=== PATIENT | female | born 1995 | race Asian ===

== ENCOUNTER 2023-12-19 00:32 | Emergency (ER) | payer BC, SELFPAY ==
[2023-12-19 00:35] VITALS: BP 156/99
[2023-12-19 00:48] VITALS: BP 148/96; BMI 43.0
--- NOTE | 2023-12-19 00:58 | ED.GENMED ---
History of Present Illness
General
Chief Complaint: Fever
Source: patient
Exam Limitations: none
Time Seen by Provider: 12/19/23 00:49
Travel History
Have you had any contact with someone who has COVID-19?: No
Do you have any symptoms of coronavirus? Fever > 100 degrees, chills, cough, shortness of breath, sore throat, loss of taste or smell, muscle aches, or headache?: Yes
Symptoms:: fever
History of Present Illness
History of Present Illness:
This is a 27 year old female that comes in with c/o chills. States that around 11:30pm she started with chills. state that she also had tingling in her pinky's and her feet were cold. States that she was hyperventilating and had diarrhea tonight but
felt it was from what she had eaten. Denies any chest pain, abd pain, nausea, vomiting, headache, dizziness, urinary burning.
Past History
Past History
ED Past Medical History: Other (migraine)
ED Past Surgical History: None
Social History
Tobacco: Non-smoker
Alcohol: Occasional
Drug: None
Personal:
Living: with family
Employment: Employed
Review of Systems
Review of Systems
All Other Systems: ROS reviewed and negative except as documented in HPI and ROS
Constitutional: Reports chills; Denies fever
EENT: Reports no symptoms
Respiratory: Denies cough or trouble breathing
Cardiac: Reports no symptoms; Denies chest pain
ABD/GI: Reports diarrhea; Denies abdominal pain, nausea or vomiting
: Reports no symptoms; Denies dysuria, frequency or urgency
Musculoskeletal: Reports no symptoms
Skin: Reports no symptoms
Neurological: Reports no symptoms; Denies dizzy or headache
Psychiatric: Reports no symptoms
Phy Exam
General Physical Exam
General Presentation: no apparent distress
General age: appears stated age
General Skin: warm and dry
General Habitus: normal
General Mental: alert
General Hydration: appears well hydrated
ENT Exam
ENT Exam: TM's normal, pharynx normal and neck supple
Eye Exam
Eye Exam: EOMI
Cardiovascular Exam
Cardiovascular Exam: regular rate/rhythm, no edema, no murmur and normal peripheral pulses
Pulmonary Exam
Pulmonary Exam: lungs clear, no respiratory distress, no rales, chest non tender, no crackles, no rhonchi, no wheezing and no cough
Gastrointestinal Exam
Gastrointestinal Exam: normal bowel sounds, non tender, soft, no organomegaly, no pulsatile mass and non distended
Musculoskeletal Exam
Musculoskeletal Exam: full ROM and no edema
Skin Exam
Skin Exam: normal color, warm/dry, no rash and no petechia
Course
Orders/Labs/Results
Orders:
Orders
12/19/23 00:56
0.9% Sodium Chloride 1000 ml [Nss] 1,000 ml IV BOLUS
Acetaminophen [Tylenol] 1,000 mg PO NOW STA
Test Result ONCE
12/19/23 01:02
COVID-19 Antigen Urgent
Source: Nasal Swab
Urinalysis Reflex To Culture Urgent
Date Specimen was Collected: 12/19/23
Time Specimen was Collected: 00:59
Urine Microscopic Reflex Cult Urgent
Influenza A+B Rapid Molecular Urgent
JANIYA Source: Nasal Swab
Specimen Description:
Urine Culture Urgent
JANIYA Source: U
Specimen Description:
Date Specimen was Collected: 12/19/23
Time Specimen was Collected: 00:59
12/19/23 01:08
Complete Blood Count/With Diff Urgent
Comprehensive Metabolic Panel Urgent
HCG, Serum Qualitative Screen Urgent
12/19/23 01:47
CR Chest - 2 Views Urgent
Comment:
Reason For Exam: Fever
Abnormal Lab Results
12/19/23 12/19/23
01:02 01:08
MCV 77.8 L fL
(81.0-99.0)
Abs Immat Gran (auto) 0.1 H 10^3/uL
(0-0.05)
Absolute Lymphs (auto) 0.8 L 10^3/uL
(1.2-3.4)
Immature Gran % 0.8 H %
(0-0.5)
Neutrophils % 78.6 H %
(42.2-75.2)
Lymphocytes % 11.6 L %
(20.5-51.1)
Sodium 133 L mmol/L
(135-145)
Carbon Dioxide 19 L mmol/L
(22-30)
Creatinine 0.5 L mg/dL
(0.6-1.0)
AST 67 H U/L
(14-36)
ALT 46 H U/L
(0-35)
Leukocyte Esterase Rfl Trace A
(Negative)
Urine Bacteria (Reflex) Many A
(Negative)
12/19/23 01:08
12/19/23 01:08
Sodium slightly low. Carbon dioxide slightly low. AST/ALT elevation but improved when compared to prior labs. Urine negative for infection. HCG negative, COVID and Influenza negative.
Vital Signs
Initial and Last Documented VS:
Initial Vital Signs
Temp Pulse Resp BP Pulse Ox
101.4 F H 130 20 156/99 98
12/19/23 00:35 12/19/23 00:35 12/19/23 00:35 12/19/23 00:35 12/19/23 00:35
Last Documented Vital Signs
Temp Pulse Resp BP Pulse Ox
101.4 F H 130 20 148/96 96
12/19/23 00:35 12/19/23 00:35 12/19/23 00:35 12/19/23 00:48 12/19/23 00:48
MDM/Problems Addressed
Differential Diagnosis Includes:
COVID, Influenza, UTI
MDM/Problems Addressed:
This is a 27 year old female that comes in with c/o chills. States that this started about 11:30pm tonight. States that she as hyperventilating and that her pinky's were tingling and her feet were cold.
Will get labs, COVID and Influenza.
Back into see patient. Explained that her blood work shows that her Liver enzymes are elevated. They have been elevated in the past but improved since that time. Explained that the liver enzymes can also go up with a viral illness. Patient is
negative for COVID, Influenza and her Urine is negative. Chest x-ray is normal. Explained that this is most likely a viral illness. Patient can alternate with Tylenol and Ibuprofen for fever. Increase her water intake to 8-8oz glasses daily. Follow
up with the family doctor. Return with any concerns.
Chronic conditions affecting care:
NA
Acute Exacerbation and/or Progression of Chronic Illness:
NA
*Radiology
Radiology exam reviewed: preliminary read by ED provider (Chest- Negative for active disease)
*Pulse Oximetry
Patient hypoxic: no
*EKG
Interpreted by ED Provider?: NA
Rate: EKG- N/A
*Folder Seamer Automatic Interpretation
Rate: Folder Seamer Automatic- N/A
*Critical Care Note
Total Time (30-74mins, 75-104mins- exclusive of procedures): Not Applicable
ED Attending Note
-
Portions of this chart may have been created with voice recognition software.� Occasional wrong word or��sound alike� substitutions may have occurred due to the inherent limitations of voice recognition software.
Discharge Plan
Departure
Patient Disposition: Home (Routine Discharge)
Date of Disposition: 12/19/23
Time of Disposition: 02:13
Patient with high blood pressure during this ER visit?: Yes
Condition: Good
Covid-19: Negative COVID-19
Discharge Problem:
Acute viral syndrome
Instructions: Fever, Adult (DC), Viral Syndrome (DC), BLOOD PRESSURE
Prescriptions:
No Action
multivitamin 1 EACH tablet
1 ea PO Daily
desog-e.estradiol/e.estradiol [Viorele (28)] 1 EACH tablet
1 ea PO Daily
ondansetron 4 MG tablet,disintegrating
4 mg PO TIDPRN PRN (Reason: nausea) Qty: 7 0RF
diclofenac sodium 75 MG tablet,delayed release (DR/EC)
75 mg PO BID Qty: 10 0RF
prochlorperazine maleate 10 MG tablet
10 mg PO Q8HPRN PRN (Reason: headaches and nausea) Qty: 12 0RF
Activity Restrictions/Additional Instructions:
As discussed, your blood work shows that your liver enzymes are elevated. However, they are improved from the prior blood work that was done. You are negative for COVID, Influenza, urine is negative and your chest x-ray is normal. This is most
likely a viral illness. Please increase your water intake to 8-8oz glasses daily. Tylenol or Ibuprofen for fever. Follow up with the family doctor for recheck. IF YOU HAVE ANY OTHER CONCERNS PLEASE RETURN TO THE EMERGENCY ROOM.
Interventions
Interventions:
*Risk Screen - Suicide Last Done: 12/19/23 00:35
*General Assessment Last Done: 12/19/23 00:48
*Neglect/Abuse Screening Last Done: 12/19/23 00:35
ED- Fall Risk Assessment Last Done: 12/19/23 00:48
*ED COVID-19 Vaccine History Last Done: 12/19/23 00:35
ED- Neurological Assessment Last Done: 12/19/23 00:48
ED-Skin Assessment Last Done: 12/19/23 00:48
Discharge Date and Time
Print Language: GEORGIAN
[2023-12-19] MEDS: TYLENOL 1000 MG PO (01:05)
[2023-12-19 01:16] LABS: Urine Albumin Negative (Neg - Trace); Urine Bilirubin Negative (Negative); Urine Character Clear (Clear); Urine Color Yellow; Urine Glucose Negative (Negative); Urine Ketone Negative (Negative); Urine Leukocyte Trace (Negative); Urine Nitrite Negative (Negative); Urine Occult Blood Negative (Negative); Urine Urobilinogen Negative (Neg - 1+)
[2023-12-19] MEDS: NSS 1000 IV (01:19)
[2023-12-19 01:25] LABS: % Basophils 0.5 % (0-2); % Eosinophils 2.6 % (0-6); % Immature Granulocytes 0.8 % (0-0.5); % Lymphocytes 11.6 % (20.5-51.1); % Monocytes 5.9 % (1.7-9.3); % Neutrophils 78.6 % (42.2-75.2); Absolute Eosinophils 0.2 10^3/uL (0-0.7); Absolute Immature Granulocytes 0.1 10^3/uL (0-0.05); Absolute Lymphocytes 0.8 10^3/uL (1.2-3.4); Absolute Monocytes 0.4 10^3/uL (0.1-0.6); Absolute Neutrophils 5.2 10^3/uL (1.4-6.5); Hemoglobin 13.8 g/dL (12.0-16.0); Mean Corp Hgb Conc. 35.4 g/dL (33.0-37.0); Mean Corpuscular Hgb 27.5 pg (27.0-31.0); Mean Corpuscular Volume 77.8 fL (81.0-99.0); Mean Platelet Volume 9.4 fL (7.4-10.4); Nucleated Red Blood Cells % 0 %; Platelet Count 216 10^3/uL (130-400); Red Blood Cell Count 5.01 10^6/uL (4.20-5.40); Red Cell Dist. Width 12.9 % (11.5-14.5); White Blood Cell Count 6.6 10^3/uL (4.8-10.8)
[2023-12-19 01:28] LABS: Urine Mucus Moderate; Urine Squamous Cell >30 /LPF (Few)
[2023-12-19 01:29] LABS: Urine Bacteria Many (Negative); Urine Red Blood Cell 0-2 /HPF (0-2)
[2023-12-19 01:30] LABS: COVID-19 Antigen Negative (Negative)
[2023-12-19 01:41] LABS: HCG, Serum Qualitative Screen Negative
[2023-12-19 01:43] LABS: ALT (SGPT) 46 U/L (0-35); AST (SGOT) 67 U/L (14-36); Albumin 4.5 g/dl (3.5-5.0); Alkaline Phosphatase 106 U/L (38-126); Blood Urea Nitrogen 8 mg/dl (7-17); Calcium 9.1 mg/dl (8.4-10.2); Carbon Dioxide 19 mmol/L (22-30); Chloride 105 mmol/L (98-107); Estimated Creatinine Clearance > 125 ml/min; Glucose 83 mg/dl (70-99); Potassium 4.4 mmol/L (3.5-5.1); Sodium 133 mmol/L (135-145); Total Protein 8.1 g/dl (6.3-8.2); eGFR > 60.00
[2023-12-19 02:07] VITALS: BP 156/91
[2023-12-19 03:00] VITALS: BP 147/87
== END 2023-12-19 03:09 | disposition home or self-care (01) ==
LOC: EMR 00:32
PROVIDERS: Clinical Nurse Specialist Family Health; EMERGENCY PHYSICIAN Emergency Medicine; FAMILY PHYSICIAN Internal Medicine
DX: B34.9 Viral infection, unspecified (principal); R50.9 Fever, unspecified
CPT/HCPCS: 99283; 96360; 71046; 80053; 81003; 81015; 84703; 85025; 87086; 87502; 87811